=== PATIENT | female | born 1980 | race Caucasian/White ===

== ENCOUNTER 2016-12-06 11:22 | Emergency (ER) | payer BC, MEDICAID ==
[2016-12-06 11:46] VITALS: BP 124/47
[2016-12-06 12:12] LABS: Urine Bacteria 1+ (Absent); Urine Bilirubin Negative (Negative); Urine Glucose Negative (Negative); Urine Nitrite Negative (Negative)
[2016-12-06] MEDS ORDERED: Pantoprazole IV* 40 MG IV ONE (13:43)
[2016-12-06] MEDS ORDERED: Ondansetron INJ* 2 MG/ML VIAL IV ONE (13:43)
[2016-12-06] MEDS ORDERED: Ketorolac INJ* 30 MG/ML 1 ML VIAL IV ONE (13:43)
[2016-12-06] MEDS ORDERED: NS 0.9% 1000 ML* 2,000 ML IV ONE (13:43)
--- NOTE | 2016-12-06 14:53 | RAD ---
Indication: Upper abdominal pain. Real-time sonography of the right upper quadrant was performed. Liver is mildly enlarged measuring 19 cm in length. No focal lesions or intrahepatic ductal dilatation is noted. The gallbladder demonstrates no gallstones, pericholecystic fluid or wall thickening. The common duct measures 2 mm. The right kidney measures 12.9 x 3.4 x 4.6 cm with no hydronephrosis. The pancreatic head, neck and proximal body demonstrates no mass or pancreatic ductal dilatation. IMPRESSION: No evidence of cholelithiasis or biliary ductal dilatation is noted.
[2016-12-06 15:05] LABS: Hematocrit 46 % (35-47); Hemoglobin 15.7 g/dl (12.0-16.0); Mean Corpuscular HGB Conc 34 g/dl (31-36); Mean Corpuscular Hemoglobin 31 pg (27-31); Mean Corpuscular Volume 92 fL (80-97); Mean Platelet Volume 8 um3 (7.4-10.4); Red Blood Count 5.07 10^6/ul (4.0-5.4); Red Cell Distribution Width 13 % (10.5-15); White Blood Count 11.7 10^3/ul (3.5-10.8)
[2016-12-06 15:22] LABS: ALT 15 U/L (7-52); AST 14 U/L (13-39); Albumin 4.7 g/dL (3.2-5.2); Alkaline Phosphatase 73 U/L (34-104); Anion Gap 8 mmol/L (2-11); BUN/Creatinine Ratio 11.9 (8-20); Blood Urea Nitrogen 7 mg/dL (6-24); C Reactive Protein 1.09 mg/L (< 5.00); CO2 Carbon Dioxide 28 mmol/L (22-32); Chloride 100 mmol/L (101-111); EGFR African American 147.5 (>60); EGFR Non-African American 114.7 (>60); Globulin 2.8 g/dL (2-4); Glucose 87 mg/dL (70-100); Lipase 28 U/L (11.0-82.0); Potassium 3.6 mmol/L (3.5-5.0); Sodium 136 mmol/L (133-145); Total Protein 7.5 g/dL (6.4-8.9)
--- NOTE | 2016-12-06 15:58 | RAD ---
INDICATION: Upper abdominal pain COMPARISON: Gallbladder sonogram December 06, 2016 TECHNIQUE: Axial source images were obtained from the hemidiaphragms to the symphysis pubis following administration of oral contrast only. Coronal and sagittal reconstructed images were acquired. Lung bases: The lung bases are clear. There is bilateral breast augmentation. Liver: The liver is normal in size and has a normal noncontrast CT appearance. Gallbladder: There are no calcified gallstones. There is no evidence of wall thickening or pericholecystic fluid. Spleen: The spleen is normal in size of the normal noncontrast appearance. Pancreas: There is no focal pancreatic mass or ductal dilatation. Adrenal glands: There is no evidence of adrenal mass. Kidneys: Noncontrast imaging the kidneys demonstrates no focal renal parenchymal mass, hydronephrosis, or renal calculi. Adenopathy: There is no evidence of adenopathy by size criteria. Fluid collections: There are no free or localized fluid collections. Vessels:There are no significant atherosclerotic changes involving the aorta. There is no focal aneurysm. The iliac vessels are normal in caliber. The IVC appears normal. GI tract: There are no acute CT bowel findings. There is no obstruction. The stomach and small bowel appear normal. The lower GI tract is normal. The cecum, ileocecal valve, and terminal ileum appear normal. The appendix is visualized and appear normal. Pelvic organs: The uterus and adnexa appear normal Bladder: There are no bladder masses. Abdominal and pelvic soft tissues: The extraperitoneal abdominal and pelvic soft tissues appear normal.. Osseous structures: There are no acute osseous findings. Other: None IMPRESSION: NO ACUTE CT FINDINGS. NO MASS OR INFLAMMATORY CHANGE.
[2016-12-06] MEDS ORDERED: Al Hydrox/Mg Hydrox/Simet LIQ* 30 ML UDC PO ONE (16:11)
[2016-12-06] MEDS ORDERED: Lidocaine 2% VISCOUS* 15 ML UDC PO ONE (16:11)
[2016-12-06] MEDS ORDERED: Al Hydrox/Mg Hydrox/Simet LIQ* 30 ML UDC ONE (16:29)
[2016-12-06] MEDS ORDERED: Lidocaine 2% VISCOUS* 15 ML UDC ONE (16:29)
--- NOTE | 2016-12-06 16:52 | ED ---
Dominik Calderon Benjamin, scribed for Isaiah Knight MD on 12/06/16 at 1333 . Abdominal Pain/Female - HPI Summary HPI Summary: 36yo female c/o 7/10 aching left sided flank pain and sharp periumbilical abdominal pain that since Sunday. Pain started intermittently, but now is constant. Pt denies any prior episodes. Took half dose of tramadol, which helped her a bit. Pt describes the pain is wrapping around the left side. Pt vomited once yesterday and reports felling hot and clammy, and almost passed out. Pt was sent from her PCP for blood in urine. Pt was unable to eat for few days due to pain and nausea. Denies fever, diarrhea or constipation, groin pain , but reports fatigue. Negative significant hx, and pt does know her FHx. light everyday smoker and a frequent drinker. Denies hx of GERD or heartburn. - History of Current Complaint Chief Complaint: EDUrogenitalProblems Stated Complaint: BACK/ABD PAIN Time Seen by Provider: 12/06/16 13:13 Hx Obtained From: Patient Onset/Duration: Gradual Onset, Lasting Days, Still Present Timing: Constant Severity Initially: Moderate Severity Currently: Moderate Pain Intensity: 7 Pain Scale Used: 0-10 Numeric Location: Umbilical Radiates to: Flank - left Character: Sharp - umbilical, Other: - achy at flank Aggravating Factor(s): Nothing Alleviating Factor(s): Nothing Associated Signs and Symptoms: Positive: Nausea PMH/Surg Hx/FS Hx/Imm Hx Previously Healthy: Yes Infectious Disease History: No Infectious Disease History: Denies: Traveled Outside the [place] in Last 30 Days - Family History Known Family History: Positive: Unknown - "I dont know my FHx." - Social History Occupation: Unemployed Lives: With Family Alcohol Use: Weekly Hx Substance Use: No Smoking Status (MU): Light Every Day Tobacco Smoker Review of Systems Constitutional: Negative Eyes: Negative ENT: Negative Cardiovascular: Negative Respiratory: Negative Positive: Abdominal Pain - Lt flank pain, Nausea, Other - Lt flank Positive: hematuria Positive: Arthralgia Skin: Negative Neurological: Negative Psychological: Normal All Other Systems Reviewed And Are Negative: Yes Physical Exam Triage Information Reviewed: Yes Vital Signs On Initial Exam: Initial Vitals Temp Pulse Resp BP Pulse Ox 98.1 F 76 20 124/47 100 12/06/16 11:41 02/01/17 11:41 12/06/16 11:41 12/06/16 11:41 12/06/16 11:41 Vital Signs Reviewed: Yes Appearance: Positive: Well-Nourished, Ill-Appearing, Pain Distress - moderate Skin: Positive: Warm, Skin Color Reflects Adequate Perfusion, Dry Head/Face: Positive: Normal Head/Face Inspection Eyes: Positive: Normal ENT: Positive: Normal ENT inspection Neck: Positive: Supple, Nontender Respiratory/Lung Sounds: Positive: Clear to Auscultation, Breath Sounds Present Cardiovascular: Positive: RRR Abdomen Description: Positive: No Organomegaly, Soft, CVA Tenderness (R), CVA Tenderness (L), Other: - Robsings negative; epigastric pain even to stethoscope , no pain to palpation on LLQ.. Negative: Distended, Guarding, McBurney's Point Tenderness Bowel Sounds: Positive: Hypoactive Musculoskeletal: Positive: Normal, Strength/ROM Intact Neurological: Positive: Normal, Sensory/Motor Intact, Alert, Oriented to Person Place, Time, CN Intact II-III Psychiatric: Positive: Affect/Mood Appropriate Diagnostics - Vital Signs Vital Signs Temp Pulse Resp BP Pulse Ox 12/06/16 11:41 98.1 F 76 20 124/47 100 - Laboratory Lab Results: Lab Results 12/06/16 Range/Units 11:45 Urine Color Straw Urine Appearance Clear Urine pH 7.0 (5-9) Ur Specific Mchenry 1.004 L (1.010-1.030) Urine Protein Negative (Negative) Urine Ketones Negative (Negative) Urine Blood 1+ H (Negative) Urine Nitrate Negative (Negative) Urine Bilirubin Negative (Negative) Urine Urobilinogen Negative (Negative) Ur Leukocyte Esterase Negative (Negative) Urine WBC (Auto) Trace(0-5/hpf) (Absent) Urine RBC (Auto) Trace(0-2/hpf) (Absent) Ur Squamous Epith Cells Present H (Absent) Urine Bacteria 1+ H (Absent) Urine Glucose Negative (Negative) Result Diagrams: 12/06/16 14:50 12/06/16 14:50 Lab Statement: Any lab studies that have been ordered have been reviewed, and results considered in the medical decision making process. - Ultrasound No standard instances Ultrasound Interpretation: Positive (See Comments) - GALL BALDDER US IMPRESSION : No evidence of cholelithiasis or biliary ductal dilatation is noted. Ultrasound Interpretation Completed By: Radiologist Abdominal Pain Fem Course/Dx - Course Course Of Treatment: DISCUSSED RESULTS WITH PATIENT. WILL RX OMEPRAZOLE. TYLENOL PRN. F/U PMD. RETURN IF WORSE. DISCHARGE HOME STABLE. - Diagnoses Provider Diagnoses: Epigastric pain, Back pain Discharge - Discharge Plan Condition: Stable Disposition: HOME Prescriptions: Omeprazole CAP* [Prilosec CAP* 20 MG] 20 mg PO BID #30 cap. Patient Education Materials: Back Pain (ED), Epigastric Pain (ED) Referrals: Kymberly Varela MD [Primary Care Provider] - Additional Instructions: FOLLOW UP WITH YOUR DOCTOR. TAKE OMEPRAZOLE 20MG TWICE A DAY. RETURN TO THE EMERGENCY DEPARTMENT FOR ANY WORSENING OF YOUR CONDITION; PAIN, FEVER, YOU FEEL ILL OR QUESTIONS OR CONCERNS. The documentation as recorded by the Dominik mercado Benjamin accurately reflects the service I personally performed and the decisions made by me, Isaiah Knight MD.
== END 2016-12-06 17:23 | disposition home or self-care (01) ==
LOC: ED 11:22 → MERGE 11:22 → ED 17:23
DX: R10.13 Epigastric pain (principal); R31.9 Hematuria, unspecified; M25.50 Pain in unspecified joint
CPT/HCPCS: 36415; 74176; 76705; 80053; 81003; 81015; 83605; 83690; 84702; 85025; 85379; 85610; 85730; 86140; 87086; 96374; 96375; 99283; A9270-GY; J1885; J2405

== ENCOUNTER 2018-04-07 18:30 | Emergency (ER) | payer BC ==
--- NOTE | 2018-04-07 20:13 | ED ---
Laceration/Wound HPI - HPI Summary HPI Summary: Complains of laceration to left second digit when glass coffee pot broke while cleaning. Denies loss of sensation or function distally. Bleeding controlled - History of Current Complaint Stated Complaint: LT HAND LAC Time Seen by Provider: 04/07/18 19:03 Hx Obtained From: Patient Hx Last Menstrual Period: 09/11/16 Pain Intensity: 4 - Allergy/Home Medications Allergies/Adverse Reactions: Allergies Allergy/AdvReac Type Severity Reaction Status Date / Time No Known Allergies Allergy Verified 04/07/18 18:41 PMH/Surg Hx/FS Hx/Imm Hx Endocrine/Hematology History: Denies: Hx Diabetes, Hx Systemic Lupus Erythematosus Cardiovascular History: Denies: Hx Congestive Heart Failure, Hx Hypertension History: Denies: Hx Dialysis, Hx Renal Disease Musculoskeletal History: Denies: Hx Rheumatoid Arthritis - Cancer History Hx Chemotherapy: No - Surgical History Surgery Procedure, Year, and Place: Denies Infectious Disease History: No Infectious Disease History: Denies: Traveled Outside the [place] in Last 30 Days - Family History Known Family History: Positive: Unknown - "I dont know my FHx." Negative: Respiratory Disease - Social History Alcohol Use: Weekly Alcohol Amount: 2x's per week Hx Substance Use: No Substance Use Type: Reports: None Smoking Status (MU): Light Every Day Tobacco Smoker Type: Cigarettes Length of Time of Smoking/Using Tobacco: 1/2 PPD Have You Smoked in the Last Year: Yes Review of Systems Constitutional: Negative Eyes: Negative ENT: Negative Cardiovascular: Negative Respiratory: Negative Gastrointestinal: Negative Genitourinary: Negative Musculoskeletal: Negative Skin: Negative Neurological: Negative Psychological: Normal All Other Systems Reviewed And Are Negative: Yes Physical Exam - Summary Physical Exam Summary: Patient extension and flexion intact at each individual joint of left second digit. Pulses and sensation intact distally. No foreign body noted Triage Information Reviewed: Yes Vital Signs On Initial Exam: Initial Vitals Temp Pulse Resp BP Pulse Ox 97.6 F 78 18 124/74 98 04/07/18 18:38 04/07/18 18:38 04/07/18 18:38 04/07/18 18:38 04/07/18 18:38 Vital Signs Reviewed: Yes Appearance: Positive: Well-Appearing Skin: Positive: Warm Head/Face: Positive: Normal Head/Face Inspection Eyes: Positive: Normal Neck: Positive: Supple Respiratory/Lung Sounds: Positive: Clear to Auscultation Cardiovascular: Positive: Normal Abdomen Description: Positive: Nontender Musculoskeletal: Positive: Normal Neurological: Positive: Normal Psychiatric: Positive: Normal AVPU Assessment: Alert - Nancy Coma Scale Best Eye Response: 4 - Spontaneous Best Motor Response: 6 - Obeys Commands Best Verbal Response: 5 - Oriented Coma Scale Total: 15 Procedures - Laceration/Wound Repair 1 Location: upper extremity Description: Linear Anesthesia: Digital, 1.0% Length, Depth and Shape: 4cm x .5cm Betadine Prep?: Yes Irrigated w/ Saline (ccs): 30 Laceration/Wound Explored: clean Debridement: minimal Suture Type: Prolene Number of Sutures: 7 - 5.0 Layer Closure?: No Diagnostics - Vital Signs Vital Signs Temp Pulse Resp BP Pulse Ox 04/07/18 18:38 97.6 F 78 18 124/74 98 - Laboratory Lab Statement: Any lab studies that have been ordered have been reviewed, and results considered in the medical decision making process. Laceration Repair Course/Dx - Course Course Of Treatment: Complains of laceration to left second digit when glass coffee pot broke while cleaning. Denies loss of sensation or function distally. Bleeding controlled. Patient extension and flexion intact at each individual joint of left second digit. Laceration is not appear to affect function. Pulses and sensation intact distally. Wound sutured. Rx for Keflex and Diflucan - Clinical Impression Provider Diagnoses: Laceration Discharge - Sign-Out/Discharge Documenting (check all that apply): Discharge/Admit/Transfer - Discharge Plan Condition: Stable Disposition: HOME Prescriptions: Cephalexin CAP* [Keflex CAP*] 500 mg PO TID 7 Days #21 cap Fluconazole [Diflucan 150 MG (NF)] 150 mg PO ONCE #1 tab Patient Education Materials: Care For Your Stitches (ED), Laceration (ED), Finger Laceration (ED) Referrals: Kymberly Varela MD [Primary Care Provider] - Additional Instructions: Sutures to be removed in 10 days. Take antibiotics as directed. May wash wound with warm running water and soap. Do not submerge underwater. Keep covered when not washing. Return to the ED for any new or worsening symptoms - Billing Disposition and Condition Condition: STABLE Disposition: HOME
[2018-04-07] MEDS ORDERED: Cephalexin CAP* 500 MG PO ONE (20:14)
[2018-04-07] MEDS ORDERED: Cephalexin CAP* 250 MG ONE (20:20)
[2018-04-07 20:35] VITALS: BP 132/78
== END 2018-04-07 20:33 | disposition home or self-care (01) ==
LOC: ED 18:30
DX: S61.211A Laceration without foreign body of left index finger without damage to nail, initial encounter (principal); W25.XXXA Contact with sharp glass, initial encounter; Y92.9 Unspecified place or not applicable; Y93.G1 Activity, food preparation and clean up; F17.210 Nicotine dependence, cigarettes, uncomplicated
CPT/HCPCS: 12002; 99282; A9270-GY